=== PATIENT | female | born 1990 | race Caucasian/White ===

== ENCOUNTER 2024-10-09 08:14 | Emergency (ER) | payer OTHER, MEDICAID | END 2024-10-09 10:00 | disposition home or self-care (01) | LOC: VM.ED 08:14 | DX: S93.402A Sprain of unspecified ligament of left ankle, initial encounter (principal); S60.212A Contusion of left wrist, initial encounter; Z88.1 Allergy status to other antibiotic agents; V89.2XXA Person injured in unspecified motor-vehicle accident, traffic, initial encounter | CPT/HCPCS: 73110-LT; 73610-LT; 99283 ==